=== PATIENT | female | born 2000 ===

== ENCOUNTER → 2024-05-27 | Outpatient (CLI) | payer OTHER ==
[2024-06-03 16:05] LABS: HPV HIGH RISK BY TMA Not Detected; HPV SOURCE Cervical
== END ==
LOC: LAB 18:31 → LAB SHORT 18:31
PROVIDERS: Nurse Practitioner Family
DX: Z01.419 Encounter for gynecological examination (general) (routine) without abnormal findings (principal)
CPT/HCPCS: 87624; G0123

== ENCOUNTER → 2025-08-26 | Outpatient (CLI) | payer OTHER ==
[2025-08-27 06:39] LABS: Bacterial Vaginosis PCR Negative (NEGATIVE); Candida Group, PCR NOT DETECTED (NOT DETECT); Candida glabrata-krusei, PCR NOT DETECTED (NOT DETECT)
[2025-08-27 07:06] LABS: Chlamydia Trachomatis Vaginal NOT DETECTED (NOT DETECT); Neisseria Gonorrhoea Vaginal NOT DETECTED (NOT DETECT)
== END | disposition home or self-care (01) ==
LOC: LAB 23:10 → LAB SHORT 23:10
PROVIDERS: Student in an Organized Health Care Education/Training Program
DX: N89.8 Other specified noninflammatory disorders of vagina (principal); R30.0 Dysuria; R35.0 Frequency of micturition
CPT/HCPCS: 81515; 87077; 87086; 87186; 87491; 87591